=== PATIENT | female | born 1950 ===

== ENCOUNTER 2020-11-12 13:57 | Outpatient (CLI) | payer OTHER, MEDICARE ==
--- NOTE | 2020-11-12 17:10 | XRAY Report ---
PROCEDURE: Knee 3 View RT INDICATIONS: EFFUSION OF RIGHT KNEE TECHNIQUE: 3 views of the right knee(s) were acquired. COMPARISON: None. FINDINGS: No acute fracture identified. There is prominent anterior soft tissue swelling. Small joint effusion. Vascular stent incidentally noted. Chondrocalcinosis is seen in the medial and lateral compartments. IMPRESSION: Anterior soft tissue swelling. No fracture identified. Small joint effusion Incidentally noted chondrocalcinosis. Reviewed by: Alvarez Vaughan MD on 11/12/2020 5:09 PM PDT Approved by: Alvarez Vaughan MD on 11/12/2020 5:09 PM PDT Station ID: [id number]
== END 2020-11-12 13:58 | disposition home or self-care (01) ==
LOC: DI.S 13:57
PROVIDERS: ATTEND Emergency Medicine
DX: M25.461 Effusion, right knee (principal); M11.261 Other chondrocalcinosis, right knee

== ENCOUNTER 2020-11-22 10:59 | Emergency (ER) | payer MEDICARE, OTHER ==
--- NOTE | 2020-11-22 12:26 | ED Physician Documentation ---
History of Present Illness - Stated complaint Stated Complaint: SOA/COUGH - Chief complaint Chief Complaint: Resp - Additonal information Additional information: 70-year-old female who carries a history of hypertension and diabetes presents t o the emergency department for evaluation of cough, congestion and shortness of air. She reports to this provider that she feels like she has the flu. She is fully vaccinated for Covid 19 with the Pfizer vaccine. She traveled to [facility] from [place] via airplane approximately 3 weeks ago but reports good social distancing and mask wearing. She is not a smoker. She states she is always had respiratory problems but has never been formally diagnosed with asthma or COPD. Compliant with her insulin and typically has blood sugars less than 200. Review of Systems Constitutional: reports: Fever, Myalgias Eyes: reports: Reviewed and negative Ears: reports: Reviewed and negative Nose: reports: Reviewed and negative Throat: reports: Reviewed and negative Cardiac: reports: Reviewed and negative Respiratory: reports: Dyspnea, Cough, Wheezing. denies: Hemoptysis GI: denies: Abdominal Pain, Nausea, Vomiting : reports: Reviewed and negative Skin: reports: Reviewed and negative PD PAST MEDICAL HISTORY - Present Medications Home Medications: Ambulatory Orders Medication Instructions Recorded Confirmed Albuterol Sulf [Ventolin Hfa 1 - 2 puffs INH Q4HR PRN #1 inhaler 11/22/20 Inhaler] Guaifenesin/Pseudoephedrne HCl 1 each PO BID PRN #30 11/22/20 [Mucinex D ER 1,200-120 mg Tab] - Allergies Allergies/Adverse Reactions: Allergies Allergy/AdvReac Type Severity Reaction Status Date / Time No Known Drug Allergies Allergy Verified 11/22/20 11:16 PD ED PE EXPANDED - General General: Alert, No acute distress, Well developed/nourished - Neck Neck: Supple w/out meningeal sx. No: Adenopathy - Cardiac Cardiac: Regular Rate, Regular Rhythm, Radial strong equal, Pedal strong equal, Cap refill < 2 sec. No: Murmur Present - Respiratory Respiratory: Clear to ausultation nathen, Wheezing (Global wheezing in the right middle upper lobe lung hale.). No: Distress, Labored - Abdomen Abdomen: Normal Bowel sounds. No: Tender to palpation - Back Back: Normal exam. No: Soft tissue tenderness, Straight leg raise + R, Straight leg raise + L - Extremities Extremities: Normal. No: Deformity, Tenderness - Neuro Neuro: Alert and Oriented X 3, CNII-XII intact - GCS Eye Opening: Spontaneous Motor: Obeys Commands Verbal: Oriented Total: 15 Results - Vitals Vitals: Vital Signs - 24 hr 11/22/20 11/22/20 11/22/20 11:02 13:00 13:15 Temperature 36.4 C L 36.3 C L Heart Rate 78 76 77 Respiratory 18 16 16 Rate Blood Pressure 163/74 H 182/86 H O2 Saturation 99 100 Oxygen O2 Source Room air - Labs Labs: Laboratory Tests 11/22/20 11/22/20 11/22/20 12:44 12:44 12:49 WBC 5.8 RBC 4.83 Hgb 14.2 Hct 42.6 MCV 88.2 MCH 29.4 MCHC 33.3 RDW 12.3 Plt Count 200 MPV 9.7 Neut # (Auto) 4.3 Lymph # (Auto) 0.9 L Mora # (Auto) 0.5 Eos # (Auto) 0.2 Baso # (Auto) 0.0 Absolute Nucleated RBC 0.00 Nucleated RBC % 0.0 Sodium 135 Potassium 3.9 Chloride 99 L Carbon Dioxide 26 Anion Gap 10.0 BUN 18 Creatinine 1.1 H Estimated GFR (MDRD) 49 L Glucose 335 H Calcium 9.3 Total Bilirubin 1.0 AST 15 ALT 15 Alkaline Phosphatase 72 Total Protein 7.0 Albumin 3.7 Globulin 3.3 Albumin/Globulin Ratio 1.1 Lipase 29 Nasal Adenovirus (PCR) NOT DETECTED Nasal B. parapertussis DNA (PCR) NOT DETECTED Nasal Coronavir 229E PCR NOT DETECTED Nasal Coronavir HKU1 PCR NOT DETECTED Nasal Coronavir NL63 PCR NOT DETECTED Nasal Coronavir OC43 PCR NOT DETECTED Nasal Enterovir/Rhinovir PCR DETECTED A Nasal Influenza B PCR NOT DETECTED Nasal Influenza A PCR NOT DETECTED Nasal Parainfluen 1 PCR NOT DETECTED Nasal Parainfluen 2 PCR NOT DETECTED Nasal Parainfluen 3 PCR NOT DETECTED Nasal Parainfluen 4 PCR NOT DETECTED Nasal RSV (PCR) NOT DETECTED Nasal B.pertussis DNA PCR NOT DETECTED Nasal C.pneumoniae (PCR) NOT DETECTED Panda Human Metapneumo PCR NOT DETECTED Nasal M.pneumoniae (PCR) NOT DETECTED Nasal SARS-CoV-2 (PCR) NOT DETECTED PD MEDICAL DECISION MAKING - ED course Complexity details: reviewed results, re-evaluated patient, d/w patient ED course: This is a 70-year-old female that presents to the ER with cough cold congestion and wheezing for 3 days. Concerned that she may have COVID-19 despite being adequately vaccinated with Pfizer. On exam she is not hypoxic or tachypneic. Moderate wheeze noted on the right lung. Chest x-ray is however unrevealing. Patient was given albuterol here in the emergency department with full cessation of the wheeze. Screening labs show no acute worrisome abnormalities. Respiratory PCR panel was obtained and she is positive for rhinovirus only. At this time patient is feeling better. I have recommended [id number] decongestant for her sinus pressure and congestion. Will prescribe Mucinex for the congestion. Defer any antibiotics at this time given unremarkable chest x- ray and lack of fever or leukocytosis. Fluids and rest were discussed. Emergent return precautions for worrisome or worsening symptoms. Departure - Departure Disposition: 01 Home, Self Care Clinical Impression: Rhinovirus infection, Cough Condition: Stable Record reviewed to determine appropriate education?: Yes Instructions: ED Viral Syndrome Prescriptions: Albuterol Sulf [Ventolin Hfa Inhaler] 1 - 2 puffs INH Q4HR PRN #1 inhaler PRN Reason: Shortness Of Air/Wheezing Guaifenesin/Pseudoephedrne HCl [Mucinex D ER 1,200-120 mg Tab] 1 each PO BID PRN #30 PRN Reason: Cold Symptons Comments: rinku olvera are seen in the emergency department today for 3 days of cough cold congestion myalgias and wheezing. As we discussed at the bedside your chest x- ray is normal and does not show pneumonia. We did do viral testing on you that shows that you have rhinovirus. This is the cause of the common cold. You would do well to drink plenty of fluids at home. I have prescribed albuterol to be used 2-3 times a day to help with cough and wheeze. For congestion I have also ordered Mucinex. Most cough cold and congestion will begin to get better after about 7 days. If you find that your symptoms are worsening, you develop fevers higher than 102, develop chest pain or severe shortness of air then please return to the ER for a second evaluation.
[2020-11-22] MEDS ORDERED: ALBUTEROL 1 PUFF INH STA (12:27)
[2020-11-22 12:54] LABS: BASOPHILS % (AUTO) 0.5 %; EOSINOPHILS # (AUTO) 0.2 10^3/uL (0.0-0.7); EOSINOPHILS % (AUTO) 3.6 %; HCT - HEMATOCRIT 42.6 % (37.0-47.0); HGB - HEMOGLOBIN 14.2 g/dL (12.0-16.0); LYMPHOCYTES # (AUTO) 0.9 10^3/uL (1.5-3.5); LYMPHOCYTES % (AUTO) 14.6 %; MEAN CORPUSCULAR HEMOGLOBIN 29.4 pg (27.0-31.0); MEAN CORPUSCULAR HGB CONC 33.3 g/dL (32.0-36.0); MEAN CORPUSCULAR VOLUME 88.2 fL (81.0-99.0); MEAN PLATELET VOLUME 9.7 fL (7.9-10.8); MONOCYTES # (AUTO) 0.5 10^3/uL (0.0-1.0); MONOCYTES % (AUTO) 7.7 %; NEUTROPHILS # (AUTO) 4.3 10^3/uL (1.5-6.6); NEUTROPHILS % (AUTO) 73.3 %; PLT - PLATELET COUNT 200 10^3/uL (130-450); RED BLOOD COUNT 4.83 10^6/uL (4.20-5.40); RED CELL DISTRIBUTION WIDTH 12.3 % (12.0-15.0); WHITE BLOOD COUNT 5.8 x10^3/uL (4.8-10.8)
[2020-11-22 13:04] LABS: ALBUMIN 3.7 g/dL (3.2-5.5); ALBUMIN/GLOBULIN RATIO 1.1 (1.0-2.2); CALCIUM 9.3 mg/dL (8.5-10.3); CREATININE 1.1 mg/dL (0.4-1.0); POTASSIUM 3.9 mmol/L (3.5-5.0)
[2020-11-22] MEDS ORDERED: IBUPROFEN 600 MG TABLET PO STA (13:38)
--- NOTE | 2020-11-22 13:44 | XRAY Report ---
PROCEDURE: Chest 1 View X-Ray INDICATIONS: chest pain TECHNIQUE: One view of the chest was acquired. COMPARISON: None FINDINGS: Surgical changes and devices: Sternotomy wires. Lungs and pleura: No pleural effusions or pneumothorax. Lungs are clear. Mediastinum: Mediastinal contours appear normal. Heart size is normal. Bones and chest wall: No suspicious bony lesions. Overlying soft tissues appear unremarkable. IMPRESSION: No acute cardiopulmonary disease process. Reviewed by: Briana Fleming MD, PhD on 11/22/2020 1:43 PM PDT Approved by: Briana Fleming MD, PhD on 11/22/2020 1:43 PM PDT Station ID: [id number]
[2020-11-22 13:46] LABS: B. PARAPERTUSSIS- RESP PCR PAN NOT DETECTED; B. PERTUSSIS- RESP PCR PANEL NOT DETECTED; C. PNEUMONIAE- RESP PCR PANEL NOT DETECTED; CORONAVIRUS 229E-RESP PCR NOT DETECTED; CORONAVIRUS HKU1-RESP PCR NOT DETECTED; CORONAVIRUS NL63-RESP PCR NOT DETECTED; CORONAVIRUS OC43-RESP PCR NOT DETECTED; HUMAN METAPNEUMOVIRUS NOT DETECTED; INFLUENZA A- RESP PCR PANEL NOT DETECTED; INFLUENZA B - RESP PCR PANEL NOT DETECTED; M. PNEUMONIAE- RESP PCR PANEL NOT DETECTED; PARAINFLUENZA VIRUS 1 NOT DETECTED; PARAINFLUENZA VIRUS 2 NOT DETECTED; PARAINFLUENZA VIRUS 3 NOT DETECTED; PARAINFLUENZA VIRUS 4 NOT DETECTED; RHINOVIRUS/ENTEROVIRUS DETECTED; RSV- RESP PCR PANEL NOT DETECTED; SARS-CoV-2 -RESP PCR PANEL NOT DETECTED
[2020-11-22 14:15] VITALS: BP 157/79
== END 2020-11-22 14:15 | disposition home or self-care (01) ==
LOC: ED 10:59
DX: B34.8 Other viral infections of unspecified site (principal); Z20.822 Contact with and (suspected) exposure to COVID-19
CPT/HCPCS: 36415; 71045; 80053; 83690; 85025; 87631; 94640; 99284; A9270; 0202U

== ENCOUNTER 2020-11-26 10:34 | Emergency (ER) | payer MEDICARE ==
--- NOTE | 2020-11-26 13:10 | ED Physician Documentation ---
History of Present Illness - Stated complaint Stated Complaint: SOA/SINUS PRESSURE - Chief complaint Chief Complaint: Resp - History obtained from History obtained from: Patient - History of Present Illness Timing: How many days ago (5-6) Pain level max: 3 Pain level now: 2 - Additonal information Additional information: Patient reports being seen here 2 days ago for same. She states she has been sick for the past 5 to 6 days, subjective fevers and chills. She states that she was given albuterol inhaler and tested positive for rhinovirus. She states she has a longstanding history of sinus issues and has chronic sinus disease, states that she has "sinus infections" every year that feels similar to this. She has a productive cough. Negative x-ray from a few days ago. She also states that her wheezing has increased. She is diabetic. She states that her normal blood sugars are 150-200. Review of Systems Nose: reports: Rhinorrhea / runny nose, Congestion Respiratory: reports: Dyspnea, Cough, Wheezing GI: denies: Abdominal Pain, Vomiting, Diarrhea Skin: denies: Rash Musculoskeletal: denies: Neck pain, Back pain Neurologic: denies: Headache PD PAST MEDICAL HISTORY - Past Medical History Past Medical History: Yes Cardiovascular: Hypertension, Coronary artery disease Endocrine/Autoimmune: Type 2 diabetes - Past Surgical History Past Surgical History: Yes Cardiovascular: CABG, Coronary stent - Present Medications Home Medications: Ambulatory Orders Medication Instructions Recorded Confirmed Albuterol Sulf [Ventolin Hfa 1 - 2 puffs INH Q4HR PRN #1 inhaler 11/22/20 Inhaler] Guaifenesin/Pseudoephedrne HCl 1 each PO BID PRN #30 11/22/20 [Mucinex D ER 1,200-120 mg Tab] Insulin Aspart [NovoLOG] 20 unit SQ TID 11/22/20 11/22/20 Insulin Detemir [Levemir Flextouch] 30 unit SQ HS 11/22/20 11/22/20 Amox/Clav 875/125 [Augmentin] 1 tab PO Q12H #20 tablet 11/26/20 Flunisolide 2 spray NS BID PRN #1 bottle 11/26/20 predniSONE [Deltasone] 40 mg PO DAILY #10 tablet 11/26/20 - Allergies Allergies/Adverse Reactions: Allergies Allergy/AdvReac Type Severity Reaction Status Date / Time Iodinated Contrast Media Allergy Hives Verified 11/26/20 10:52 Sulfa (Sulfonamide Allergy Anaphylaxis Verified 11/26/20 10:52 Antibiotics) - Social History Does the pt smoke?: No Smoking Status: Never smoker Does the pt drink ETOH?: No Does the pt have substance abuse?: No - Immunizations Immunizations are current?: Yes PD ED PE NORMAL - Vitals Vital signs reviewed: Yes - General General: Alert and oriented X 3, No acute distress, Well developed/nourished - HEENT HEENT: PERRL, Ears normal, Moist mucous membranes, Pharynx benign, Other (yellow drainage from B nares. TTP over frontal sinuses.) - Neck Neck: Supple, no meningeal sign, No adenopathy - Cardiac Cardiac: RRR - Respiratory Respiratory: No respiratory distress, Other (Mild wheezing bilaterally) - Abdomen Abdomen: Soft, Non tender, Non distended - Derm Derm: Warm and dry, No rash - Neuro Neuro: Alert and oriented X 3 - Psych Psych: Normal mood, Normal affect Results - Vitals Vitals: Vital Signs - 24 hr 11/26/20 11/26/20 10:44 12:32 Temperature 36.5 C 36.5 C Heart Rate 84 84 Respiratory 18 18 Rate Blood Pressure 143/80 H 143/80 H O2 Saturation 99 99 Oxygen O2 Source Room air PD MEDICAL DECISION MAKING - ED course Complexity details: reviewed old records, considered differential, d/w patient ED course: Patient is tested positive for rhinovirus 2 days ago. She is wheezing on examination here. We will trial her on steroids. Counseled that her blood sugars will increase during this time. We will have her increase her albuterol to every 3-[address] her on intranasal steroids to help with sinus drainage. If the patient fails to improve in the next 24 to 48 hours, we will start her on an antibiotic. Patient is well-appearing, nontoxic. Afebrile. Patient counseled regarding signs and symptoms for which I believe and urgent re-evaluation would be necessary. Patient with good understanding of and agreement to plan and is comfortable going home at this time This document was made in part using voice recognition software. While efforts are made to proofread this document, sound alike and grammatical errors may occur. Departure - Departure Disposition: 01 Home, Self Care Clinical Impression: Rhinovirus infection Sinusitis Qualifiers: Sinusitis location: unspecified location Chronicity: acute Recurrence: not specified as recurrent Qualified Code(s): J01.90 - Acute sinusitis, unspecified Condition: Good Instructions: ED Sinusitis Abx Tx Follow-Up: your,doctor in 1 week [Other] Prescriptions: Amox/Clav 875/125 [Augmentin] 1 tab PO Q12H #20 tablet predniSONE [Deltasone] 40 mg PO DAILY #10 tablet Flunisolide 2 spray NS BID PRN #1 bottle PRN Reason: Nasal Congestion Comments: We will trial you on steroids and intranasal steroids before starting the antibiotic. If you fail to improve, you can start the antibiotic in 2 to 3 days. As we discussed there are side effects to antibiotics including bacterial resistance, diarrhea, C. difficile diarrhea, vomiting, rashes, allergic reactions. Follow-up with your doctor for further care. Make sure you are using the albuterol with a spacer at least every 3-4 hours if you are having difficulty breathing. This should be done with 2 puffs.
[2020-11-26 13:35] VITALS: BP 130/80
== END 2020-11-26 13:34 | disposition home or self-care (01) ==
LOC: ED 10:34
DX: J01.90 Acute sinusitis, unspecified (principal); B34.8 Other viral infections of unspecified site; E11.9 Type 2 diabetes mellitus without complications; Z79.4 Long term (current) use of insulin; I10 Essential (primary) hypertension
CPT/HCPCS: 99283; 99284